=== PATIENT | female | born 1985 | race Hispanic/Latino ===

== ENCOUNTER → 2021-01-23 | Outpatient (CLI) | payer OTHER | LOC: RAD 13:43 | PROVIDERS: ATTEND Internal Medicine | DX: M25.562 Pain in left knee (principal) ==

== ENCOUNTER → 2022-05-22 | Outpatient (CLI) | payer OTHER | LOC: RAD 09:01 | PROVIDERS: ATTEND Internal Medicine | DX: M25.571 Pain in right ankle and joints of right foot (principal); W19.XXXA Unspecified fall, initial encounter ==

== ENCOUNTER → 2025-04-25 | Outpatient (REF) | payer OTHER | LOC: MAMMO 09:10 | PROVIDERS: ATTEND Internal Medicine | DX: Z12.31 Encounter for screening mammogram for malignant neoplasm of breast (principal) | CPT/HCPCS: 77067 ==